=== PATIENT | female | born 1985 | race Caucasian/White ===

== ENCOUNTER 2019-03-31 14:42 | Emergency (ER) | payer BC, SELFPAY ==
[2019-03-31 14:55] VITALS: BP 145/80; PULSE 93; RESP 20; TEMP 36.5; O2SAT 98
--- NOTE | 2019-03-31 15:20 | PC.NURSE ---
Patient requested flu test at discharge
--- NOTE | 2019-03-31 15:28 | ED.EYEPROB ---
HPI - Eye Problem General Chief complaint: Eye Problems Stated complaint: scratched left eye Source: patient and RN notes reviewed Mode of arrival: ambulatory Limitations: no limitations History of Present Illness HPI Narrative: The patient, previously mostly healthy does not wear contact lenses/eyeglasses, presents with eye discomfort. Patient states she sustained a scratch from her domestic cat an hour couple hours prior to arrival. No photophobia, bleeding; symptoms are mild, slightly worse with blinking; tetanus UTD She also notes 1 day preceding history of mild scratchy throat, nasal congestion and nonproductive cough. Symptoms are mild, worse upon awakening the morning Related Data Home Medications Medication Instructions Recorded Confirmed alprazolam 1 mg BID 03/31/19 03/31/19 bupropion HCl 150 mg PO DAILY 03/31/19 03/31/19 sertraline 100 mg DAILY 03/31/19 03/31/19 Allergies Allergy/AdvReac Type Severity Reaction Status Date / Time No Known Allergies Allergy Verified 03/31/19 15:01 Review of Systems Review of Systems: Narrative: The patient has been informed that they may have pre-hypertension or Hypertension based on a BP reading in the department. I recommend that the patient call the primary care provider listed on their discharge instructions or a physician of their choice this week to arrange follow up for further evaluation of possible pre-hypertension or Hypertension General/Constitutional: No weight loss,fever Eyes: N0: Redness,discharge Ears/Nose/Throat: No: Epistaxis,ear discharge Respiratory: Denies: Hemoptysis Gastrointestinal: No Vomiting, Bleeding-rectal Skin: No Lumps, eruption Neurologic: No Focal Weakness,Sz Hematologic: Denies: Petechiae/Purpura Psychiatric: No: Suicida ideationl All Other Systems: Reviewed and Negative PMFSH Social History Social History Gender identity (if verbalized by the patient): Female Comments At time of signature, agree with nursing past medical, surgical, social and family history. There is no relevant family history pertinent to the presenting complaint Exam Narrative: Exam Narrative: General Appearance: Well appearing, Well nourished, No distress EYE: PERRLA, [id number] normal, EOMI lens normal, Normal corneas ++fluorescein uptake 2mm linear, vertical near visual axis; anterior chamber deep, Min Conjunctiva injection Ears: External ear normal, Auditory canal normal Nose: Normal nose, Nares clear Mouth/Throat: Normal appearing, Normal lips Neck: Supple, No adenopathy Respiratory: Airway patent, No respiratory distress Skin: Warm, Dry Neurological: A&O x3, CN II-X intact Psychiatric: Normal mood, Normal affect Course Vital Signs Vital signs: Vital Signs Temperature 97.7 F 03/31/19 14:55 Pulse Rate 93 03/31/19 14:55 Respiratory Rate 03/31/19 14:55 Blood Pressure 145/80 H 03/31/19 14:55 Pulse Oximetry 98 03/31/19 14:55 Temperature 97.7 F 03/31/19 14:55 Pulse Rate 93 03/31/19 14:55 Respiratory Rate 03/31/19 14:55 Blood Pressure 145/80 H 03/31/19 14:55 Pulse Oximetry 98 03/31/19 14:55 MDM - Eye Problem Lab Data Labs: Influenza A Screen Negative Reference Range: Negative Influenza B Screen Positive Reference Range: Negative Discharge Plan Discharge Clinical Impression: Influenza B Corneal abrasion Qualifiers: Encounter type: initial encounter Laterality: left Qualified Code(s): S05.02XA - Injury of conjunctiva and corneal abrasion without foreign body, left eye, initial encounter Patient Disposition: Home, Self-Care Condition: Stable Instructions: Corneal Abrasion (ED), Influenza (ED) Prescriptions: New gentamicin 0.3 % drops 2 drop EACH EYE Q4H Qty: 5 RF: 0 acetaminophen-codeine 120 mg-12 mg /5 mL (5 mL) solution 10 ml PO Q8H PRN (Reason: pain) Qty: 100 RF: 0 oseltamivir 75 mg capsule
== END 2019-03-31 15:14 | disposition home or self-care (01) ==
PROVIDERS: Emergency Provider Emergency Medicine; PCP Internal Medicine
DX: J10.1 Influenza due to other identified influenza virus with other respiratory manifestations (principal); S05.02XA Injury of conjunctiva and corneal abrasion without foreign body, left eye, initial encounter; W55.03XA Scratched by cat, initial encounter; F41.9 Anxiety disorder, unspecified; F32.9 Major depressive disorder, single episode, unspecified
CPT/HCPCS: 87804; 99203; A9270; G0463